=== PATIENT | female | born 1995 | race Caucasian/White ===

== ENCOUNTER 2024-01-19 01:13 | Emergency (ER) | payer SELFPAY ==
[~2024-01-19] VITALS: Ht 167.6 cm; Wt 70.0 kg
[2024-01-19] MEDS ORDERED: TETANUS, DIPHTHERIA, PERTUSSIS VAC/PF 0.5ML (>10YR OLD) IM ONE (01:30)
[2024-01-19] MEDS ORDERED: BACITRACIN ZINC OINT UDPKT TOP ONE (01:30)
[2024-01-19 01:37] LABS: BASOPHILS % 0.7 % (0.0-2.0); EOSINOPHILS % 1.5 % (0.0-5.0); HEMATOCRIT. 41.5 % (36.0-48.0); HEMOGLOBIN. 13.5 g/dL (12.0-16.0); LYMPHOCYTES % 20.9 % (20.0-50.0); MEAN CORPUSCULAR HEMOGLOBIN 29.5 pg (28.0-32.0); MEAN CORPUSCULAR HGB CONC 32.6 g/dL (31.0-37.0); MEAN CORPUSCULAR VOLUME 90.3 fL (81.0-99.0); MEAN PLATELET VOLUME 8.7 fl (7.4-10.4); MONOCYTES % 5.3 % (2.0-8.0); NEUTROPHILS % 71.6 % (40.0-76.0); PLATELET 305 x1000/uL (130-400); RED BLOOD CELL COUNT 4.59 mill/uL (4.2-5.4); WHITE BLOOD COUNT 14.5 x1000/uL (4.5-11.0)
[2024-01-19 01:44] LABS: CHLORIDE 112 mEq/L (98-107); POTASSIUM 3.2 mEq/L (3.5-5.1); SODIUM 142 mEq/L (136-145)
[2024-01-19 01:45] LABS: CARBON DIOXIDE 20 mEq/L (21-32)
[2024-01-19 01:46] LABS: INR 0.9; PROTHROMBIN TIME 9.8 sec (9.6-11.0)
[2024-01-19 01:50] LABS: CREATININE 0.7 mg/dL (0.6-1.0); GLUCOSE 130 mg/dL (70-105); UREA NITROGEN BLOOD 7 mg/dL (9-23)
[2024-01-19 01:51] LABS: ETHANOL BLOOD 300 mg/dL (<10)
[2024-01-19 01:52] LABS: ALANINE AMINOTRANSFERASE 16 IU/L (10-49); ASPARTATE AMINOTRANSFERASE 21 IU/L (<34); BILIRUBIN TOTAL 0.3 mg/dL (0.1-1.0); PROTEIN TOTAL 7.4 g/dL (6.0-8.3)
[2024-01-19 01:53] LABS: BILIRUBIN DIRECT < 0.1 mg/dL (<=3.0)
[2024-01-19] MEDS: DIPHENHYDRAMINE 50MG/ML VIAL IM NR (02:23)
[2024-01-19] MEDS: HALOPERIDOL LACTATE 5MG/ML VIAL IM NR (02:23)
[2024-01-19 02:26] LABS: HCG SCREEN NEGATIVE
[2024-01-19 03:38] VITALS: O2SAT 97
[2024-01-19] MEDS: LIDOCAINE HCL 1% 20ML VIAL INFIL ONE (05:14)
[2024-01-19] MEDS: BACITRACIN ZINC OINT UDPKT TOP NR (07:57)
[2024-01-19] MEDS: TETANUS, DIPHTHERIA, PERTUSSIS VAC/PF 0.5ML (>10YR OLD) IM ONE (08:03)
[2024-01-19] MEDS: POTASSIUM CHLORIDE 20MEQ TABLET SR PO ONE (08:10)
[2024-01-19] MEDS: LIDOCAINE HCL/PF 1% 10 MG/ML 5ML VIAL INFIL ONE (08:20)
[2024-01-19 08:32] VITALS: BP 112/77; PULSE 103; RESP 18; TEMP 36.61404; O2SAT 99
== END 2024-01-19 08:48 | disposition home or self-care (01) ==
LOC: ER 01:27 → EDBD 01:27 → ER 08:48
DX: S00.03XA Contusion of scalp, initial encounter (principal); F10.129 Alcohol abuse with intoxication, unspecified; R45.1 Restlessness and agitation; X58.XXXA Exposure to other specified factors, initial encounter; Y93.89 Activity, other specified; Y92.89 Other specified places as the place of occurrence of the external cause; Y99.8 Other external cause status; Y90.8 Blood alcohol level of 240 mg/100 ml or more
CPT/HCPCS: 80076; 80048; 80320; 84703; 83690; 85025; 85610; 36415; 71045; 73590; 70450; 70486; 72125; 90715; 12011; 90471; 96372; 99291; J1200; J1630; J3490 ×2; Z7610 ×4; G0480